=== PATIENT | female | born 1965 | race Caucasian/White ===

== ENCOUNTER 2016-07-25 15:35 | Observation (INO) ==
[2016-07-25] MEDS ORDERED: 0.9 % Sodium Chloride 1,000 ML IVC ONE (15:40)
[2016-07-25] MEDS ORDERED: *HR* Promethazine 25 MG/ML VIAL IVP ONE (15:40)
--- NOTE | 2016-07-25 15:42 | Emergency Department Note ---
Disposition Clinical Impression: Gastroenteritis, Influenza B, Mental status change resolved Disposition: Admitted As Inpatient Condition: Fair Referrals: NO,PCP [Primary Care Provider] - Forms: ED Satisfaction Letter Time of Disposition: 18:46 (christine rothman [facility]) Nausea/Vomiting/Diarrhea HPI - General Chief complaint: ED Nausea/Vomiting/Diarrhea Stated complaint: Cough, Dizzy, N/V Time Seen by Provider: 07/25/16 15:55 Source: patient, EMS Mode of arrival: EMS Limitations: no limitations Nursing Notes Reviewed: Yes Vital Signs Reviewed: Yes - History of Present Illness HPI Narrative: Patient presents to the emergency room family member has a confirmed flu B she has been having nausea vomiting fever chills aches all over denies diarrhea melena hematochezia or hematemesis denies any numbness or tingling family states that she is just weak all symptoms began this morning no headache no neck pain and except as noted joint aches no rashes or lesions all systems reviewed and otherwise negative Pt Subjective Complaint: nausea, vomiting, diarrhea Onset (ago): Just [employer] Description of emesis: food contents Description of Diarrhea: water Associated Abdominal Pain: Yes If pain, Location of pain: diffuse Severity: mild Severity scale (1-10): 2 Quality: cramping Consistency: constant Improves with: nothing Worsens with: nonthing Context: other (known sick eposure and influenza exposure) Associated symptoms: Reports: fever/chills, loss of appetite, malaise, nausea/ vomiting, weakness. Denies: myalgias, chest pain, cough, diaphoresis, headaches , dysuria, shortness of breath, syncope - Related Data Home Medications Medication Instructions Recorded Confirmed No Known Home Drugs 07/25/16 07/25/16 Allergies Allergy/AdvReac Type Severity Reaction Status Date / Time No Known Allergies Allergy Verified 07/25/16 15:40 All systems ED: reviewed and negative except as stated. Constitutional: Reports: fever. Denies: chills, weakness Eyes: Denies: eye pain, eye discharge ENT ED: Denies: ear pain Cardiovascular: Denies: chest pain Respiratory: Denies: cough, dyspnea Gastrointestinal: Reports: abdominal pain, nausea, vomiting, diarrhea Genitourinary: Denies: urgency, dysuria, frequency Musculoskeletal: Denies: back pain Integumentary: Denies: abrasion, lesions Neurological: Denies: headache, weakness Psychiatric: Denies: anxiety Endocrine: Denies: fatigue Hematological/Lymphatic: Denies: easy bleeding Allergic/Immunologic: Denies: facial swelling Past Medical History - Past Medical History Attestation: Yes The following information was validated with the patient. Source: patient, old records reviewed, nursing notes reviewed Medical history: Reports: no medical history Psychiatric history: Reports: no psych history - Social History Smoking Status: Current every day smoker Smokeless Tobacco Status: No Alcohol use: Reports: occasionally Drug use: Reports: none Physical Exam - General Limitations: no limitations General appearance: alert, in no apparent distress, anxious - Head Head exam: atraumatic, normocephalic, normal inspection - Eye Eye exam: Present: normal appearance, PERRL, EOMI - ENT ENT exam: normal exam, normal oropharynx, mucous membranes moist, normal external ear exam - Neck Neck exam: Present: normal inspection, full ROM, trachea midline - Chest Chest inspection: Present: normal inspection, symmetric chest wall rise - Respiratory Respiratory exam: Present: normal lung sounds bilaterally - Cardiovascular Cardiovascular exam: Present: regular rate, normal rhythm, normal heart sounds - Abdominal Exam Abdominal exam: Present: soft, Non-Tender, normal bowel sounds. Absent: mass, pulsatile mass - Extremities Exam Extremities exam: Present: normal inspection, full ROM, normal capillary refill. Absent: tenderness, joint swelling - Back Exam Back exam: Present: normal inspection, full ROM. Absent: muscle spasm - Neurological Exam Neurological exam: Present: alert, oriented X3, CN II-XII intact, normal gait - Psychiatric Psychiatric exam: Present: normal affect, normal mood - Skin Skin exam: Present: warm, dry, intact, normal color Course Course Narrative: Patient seen and examined IV fluids started awaiting results - Reevaluation(s) Reevaluation #1: Conclusion altered mental status when she had the fever. anticipate admission H &P proving post fluids is now alert answering question appropriately patient did have fever 101.9 given Tylenol resting admission to service Dr. Quintero Vital Signs Temperature 100.7 F H 07/25/16 15:41 Pulse Rate 107 07/25/16 15:41 Respiratory Rate 16 07/25/16 15:41 Blood Pressure 110/67 07/25/16 15:41 O2 Sat by Pulse Oximetry 97 07/25/16 15:41 Temperature 100.7 F H 07/25/16 15:43 Pulse Rate 60 07/25/16 17:45 Respiratory Rate 16 07/25/16 17:45 Blood Pressure 100/54 07/25/16 17:45 O2 Sat by Pulse Oximetry 98 07/25/16 17:45 Oxygen Delivery Oxygen Delivery Room Air Nausea/Vomiting/Diarrhea - [facility] Narrative Medical decision making narrative: Patient's family member tested positive for influenza B earlier this week most likely etiology for the - Differential Diagnosis Likely: gastroenteritis - Medical Records Medical records reviewed: Yes I reviewed the patient's medical records. - Lab Data Lab results reviewed: Yes I reviewed the patient's lab results. Result diagrams: 07/25/16 15:55 07/25/16 15:55 Lab Results 07/25/16 07/25/16 07/25/16 Range/Units 15:55 15:55 15:55 WBC 7.5 (4.3-11.1) K/mcL RBC 4.07 (3.82-4.97) M/mcL Hgb 13.4 (11.5-15.4) g/dL Hct 39.6 (35.3-44.9) % MCV 97.3 (83.0-100.0) fL MCH 32.9 (28.0-33.3) pg MCHC 33.8 (31.6-35.5) g/dL RDW 14.1 (11.5-14.5) % Plt Count 165 (140-400) K/mcL MPV 12.0 (9.4-12.4) fL Immature Gran % 0.4 (0-4) % Seg Neutrophils % 65.0 % Lymphocytes % 16.9 % Monocytes % 15.3 % Eosinophils % 1.5 % Basophils % 0.9 % Neutrophils # 4.9 (1.6-8.9) K/mcL Lymphocytes # 1.3 (0.6-4.6) K/mcL Monocytes # 1.2 (0.0-1.3) K/mcL Eosinophils # 0.1 (0.0-0.6) K/mcL Basophils # 0.1 (0.0-0.2) K/mcL APTT 34.0 (26.0-36.0) Seconds Sodium 141 (136-145) mEq/L Potassium 4.2 (3.5-4.5) mEq/L Chloride 108 (98-109) mEq/L Carbon Dioxide 22 (19-29) mEq/L BUN 10 (7-20) mg/dL Creatinine 0.87 (0.57-1.11) mg/dL Est GFR ( Amer) > 60 (> 60) Est GFR (Non-Af Amer) > 60 (> 60) BUN/Creatinine Ratio 11 (6-26) Glucose 87 (70-99) mg/dL Calculated Osmolality 290 (280-300) Calcium 9.1 (8.6-10.8) mg/dL Urine Color (Yellow) Urine Clarity (Clear) Urine pH (5.0-8.0) pH Units Ur Specific [place] (1.010-1.025) Urine Protein (Neg-Trace) mg/dL Urine Glucose (UA) (Normal) mg/dL Urine Ketones (Negative) mg/dL Urine Blood (Negative) Urine Nitrite (Negative) Urine Bilirubin (Negative) Urine Urobilinogen (Normal) mg/dL Ur Leukocyte Esterase (Negative) Urine Microscopic RBC (0-3) per hpf Urine Microscopic WBC (0-3) per hpf Ur Squamous Epith Cells (None-Few) per lpf Urine Bacteria (None-Few) per hpf Urine Mucus (Few) Ur Culture Indicated? (NO) Urine Opiates Screen (Mkuhjk=762) ng/mL Ur Oxycodone Screen (Cutoff= 100) ng/mL Ur Barbiturates Screen (Xquzpw=382) ng/mL Ur Phencyclidine Scrn (Cutoff=25) ng/mL Ur Amphetamines Screen (Kxnyah=9727) ng/mL U Benzodiazepines Scrn (Nolcbq=669) ng/mL Urine Cocaine Screen (Cutoff= 300) ng/mL U Marijuana (THC) Screen (Cutoff = 50) ng/mL 07/25/16 07/25/16 Range/Units 16:45 16:45 WBC (4.3-11.1) K/mcL RBC (3.82-4.97) M/mcL Hgb (11.5-15.4) g/dL Hct (35.3-44.9) % MCV (83.0-100.0) fL MCH (28.0-33.3) pg MCHC (31.6-35.5) g/dL RDW (11.5-14.5) % Plt Count (140-400) K/mcL MPV (9.4-12.4) fL Immature Gran % (0-4) % Seg Neutrophils % % Lymphocytes % % Monocytes % % Eosinophils % % Basophils % % Neutrophils # (1.6-8.9) K/mcL Lymphocytes # (0.6-4.6) K/mcL Monocytes # (0.0-1.3) K/mcL Eosinophils # (0.0-0.6) K/mcL Basophils # (0.0-0.2) K/mcL APTT (26.0-36.0) Seconds Sodium (136-145) mEq/L Potassium (3.5-4.5) mEq/L Chloride (98-109) mEq/L Carbon Dioxide (19-29) mEq/L BUN (7-20) mg/dL Creatinine (0.57-1.11) mg/dL Est GFR ( Amer) (> 60) Est GFR (Non-Af Amer) (> 60) BUN/Creatinine Ratio (6-26) Glucose (70-99) mg/dL Calculated Osmolality (280-300) Calcium (8.6-10.8) mg/dL Urine Color Yellow (Yellow) Urine Clarity Cloudy A (Clear) Urine pH 6.0 (5.0-8.0) pH Units Ur Specific [place] 1.020 (1.010-1.025) Urine Protein Trace (Neg-Trace) mg/dL Urine Glucose (UA) Normal (Normal) mg/dL Urine Ketones Negative (Negative) mg/dL Urine Blood Large H (Negative) Urine Nitrite Positive A (Negative) Urine Bilirubin Negative (Negative) Urine Urobilinogen Normal (Normal) mg/dL Ur Leukocyte Esterase Negative (Negative) Urine Microscopic RBC 15-30 H (0-3) per hpf Urine Microscopic WBC 0-3 (0-3) per hpf Ur Squamous Epith Cells Few (None-Few) per lpf Urine Bacteria Many H (None-Few) per hpf Urine Mucus Few (Few) Ur Culture Indicated? YES A (NO) Urine Opiates Screen Negative (Teihqj=570) ng/mL Ur Oxycodone Screen Negative (Cutoff= 100) ng/mL Ur Barbiturates Screen Negative (Igdzbd=101) ng/mL Ur Phencyclidine Scrn Negative (Cutoff=25) ng/mL Ur Amphetamines Screen Negative (Rkvquj=0690) ng/mL U Benzodiazepines Scrn Negative (Hdfyox=895) ng/mL Urine Cocaine Screen Negative (Cutoff= 300) ng/mL U Marijuana (THC) Screen Negative (Cutoff = 50) ng/mL Critical Care Time Critical Care Time: No
[2016-07-25 16:16] LABS: Basophils # 0.1 K/mcL (0.0-0.2); Basophils % 0.9 %; Eosinophils # 0.1 K/mcL (0.0-0.6); Eosinophils % 1.5 %; Hematocrit 39.6 % (35.3-44.9); Hemoglobin 13.4 g/dL (11.5-15.4); Immature Granulocytes % 0.4 % (0-4); Lymphocytes # 1.3 K/mcL (0.6-4.6); Lymphocytes % 16.9 %; Mean Corpuscular HGB Conc 33.8 g/dL (31.6-35.5); Mean Corpuscular Hemoglobin 32.9 pg (28.0-33.3); Mean Corpuscular Volume 97.3 fL (83.0-100.0); Monocytes # 1.2 K/mcL (0.0-1.3); Monocytes % 15.3 %; Neutrophils # 4.9 K/mcL (1.6-8.9); Platelet Count 165 K/mcL (140-400); Red Blood Count 4.07 M/mcL (3.82-4.97); Red Cell Distribution Width 14.1 % (11.5-14.5)
[2016-07-25 16:29] LABS: BUN/Creatinine Ratio 11 (6-26); Blood Urea Nitrogen 10 mg/dL (7-20); Calcium 9.1 mg/dL (8.6-10.8); Carbon Dioxide 22 mEq/L (19-29); Chloride 108 mEq/L (98-109); Glucose 87 mg/dL (70-99); Osmolality,Calculated 290 (280-300); Potassium 4.2 mEq/L (3.5-4.5); Sodium 141 mEq/L (136-145); eGFR For African Americans > 60 (> 60); eGFR For Non-African Americans > 60 (> 60)
[2016-07-25 16:50] LABS: Bilirubin,Urine Negative (Negative); Blood,Urine Large (Negative); Clarity,Urine Cloudy (Clear); Color,Urine Yellow (Yellow); Glucose,Urine (UA) Normal (Normal); Ketones,Urine Negative (Negative); Leukocyte Esterase,Urine Negative (Negative); Nitrite,Urine Positive (Negative); Protein,Urine Trace mg/dL (Neg-Trace); Urobilinogen,Urine Normal (Normal)
[2016-07-25 16:56] LABS: Bacteria,Urine Many per hpf (None-Few); Mucus,Urine Few (Few); RBC,Urine 15-30 per hpf (0-3); Squamous Epithelial Cell,Urine Few per lpf (None-Few); WBC,Urine 0-3 per hpf (0-3)
[2016-07-25 17:11] LABS: Amphetamine Screen,Urine Negative ng/mL (Cutoff=1000); Barbiturate Screen,Urine Negative ng/mL (Cutoff=200); Benzodiazepines Screen,Urine Negative ng/mL (Cutoff=200); Cannabinoid Screen,Urine Negative ng/mL (Cutoff = 50); Cocaine Screen,Urine Negative ng/mL (Cutoff= 300); Opiate Screen,Urine Negative ng/mL (Cutoff=300); Phencyclidine Screen,Urine Negative ng/mL (Cutoff=25)
[2016-07-25] MEDS ORDERED: CefTRIAXone 1,000 MG in D5% in Water (Mini-Bag+) 100 ML IVPB STA (17:38)
[2016-07-25] MEDS ORDERED: Ondansetron 4 MG/2 ML VIAL IVP PRN (19:36)
[2016-07-25] MEDS ORDERED: Ibuprofen 400 MG TABLET PO PRN (19:36)
[2016-07-25] MEDS ORDERED: Acetaminophen 325 MG TABLET PO PRN (19:36)
[2016-07-25] MEDS ORDERED: CefTRIAXone 1,000 MG in D5% in Water (Mini-Bag+) 100 ML IVPB ONE (19:36)
[2016-07-25] MEDS ORDERED: Naloxone 0.4 MG/ML INJ IVP PRN (19:36)
[2016-07-25] MEDS: 0.9 % Sodium Chloride 1,000 ML IVC SCH (23:47)
[2016-07-26 06:19] LABS: Basophils # 0.1 K/mcL (0.0-0.2); Hematocrit 35.8 % (35.3-44.9); Hemoglobin 12.1 g/dL (11.5-15.4); Mean Corpuscular HGB Conc 33.8 g/dL (31.6-35.5); Mean Corpuscular Hemoglobin 32.8 pg (28.0-33.3); Mean Platelet Volume 12.5 fL (9.4-12.4); Platelet Count 133 K/mcL (140-400); Red Blood Count 3.69 M/mcL (3.82-4.97); Red Cell Distribution Width 14.3 % (11.5-14.5)
[2016-07-26 06:20] LABS: INR 1.1; Prothrombin Time 11.9 Seconds (9.4-12.1)
[2016-07-26 06:23] LABS: Activated Partial Thrombo Time 31.7 Seconds (26.0-36.0)
[2016-07-26] MEDS: 0.9 % Sodium Chloride 1,000 ML IVC SCH (06:28)
[2016-07-26 06:31] LABS: BUN/Creatinine Ratio 11 (6-26); Blood Urea Nitrogen 8 mg/dL (7-20); Carbon Dioxide 19 mEq/L (19-29); Chloride 113 mEq/L (98-109); Glucose 83 mg/dL (70-99); Osmolality,Calculated 291 (280-300); Potassium 3.7 mEq/L (3.5-4.5); Sodium 142 mEq/L (136-145); eGFR For African Americans > 60 (> 60); eGFR For Non-African Americans > 60 (> 60)
[2016-07-26 07:39] LABS: Monocytes # 0.6 K/mcL (0.0-1.3); Neutrophils # 3.2 K/mcL (1.6-8.9)
[2016-07-26] MEDS ORDERED: CefTRIAXone 1,000 MG in D5% in Water (Mini-Bag+) 100 ML IVPB ONE (09:00)
[2016-07-26 10:28] VITALS: BP 108/62
--- NOTE | 2016-07-26 11:57 | Internal Med History&Physical ---
Date of Encounter: 07/26/16 Time of Encounter: 11:30 Assessment and Plan (1) Viral infection Current visit: Yes Status: Acute Presumed. No influenza testing was done. (2) Bacteria in urine Current visit: Yes Status: Acute Leukocyte esterase was negative but urine nitrite was positive and there was hematuria. We will treat empirically for UTI. (3) Mental status change resolved Current visit: Yes Status: Acute Etiology uncertain. Urine tox screen was negative. Internal Medicine - H&P: HPI Chief complaint: Vomiting and fever Admitted From: Home Plans for Post Hospital Care: Home History of present illness: Ms. Moran is a 50 year old female who came to the hospital complaining of vomiting and fever onset earlier in the day. She denied abdominal pain. She states she had a cough but no productivity from it. Her family reports she was lethargic. She was evaluated in emergency room and felt to have possible gastroenteritis and admitted to [facility] floor for ongoing care needs. Emergency room note reports she had a family member diagnosed with influenza B recently. Her respiratory history is significant for having smoked since age 9 up to 1 pack per day. She has not had PFTs and does not wear home oxygen. She states she feels improved at the present time and wishes to be discharged home. Past Med Surg Social Fam HX - Past Medical History Medical history: no medical history Psychiatric history: no psych history - Social History Smoking Status: Current every day smoker Packs per day: 1 Smokeless Tobacco Status: No Alcohol use: occasionally Drug use: none Internal Medicine - H&P: Meds No Known Home Drugs 07/25/16 [History] Allergies No Known Allergies Allergy (Verified 07/25/16 15:40) All Systems PM: A 10-system review of systems was performed and is negative for pertinent findings except as documented above in the HPI. Review of systems: Gen.: She states her weight has been stable the past few months Cardiovascular: She denies VT hypertension heart failure angina DVT or pulmonary embolus Respiratory: As per history of present illness GI: She denies disorders of her liver gallbladder or exocrine pancreas : She denies hematuria dysuria or kidney stones Neurologic: She denies large distribution strokes or seizures Endocrine: She denies diabetes thyroid disease or hyperlipidemia Hematology/oncology: She denies blood disorders cancers or anemia Psychiatric: She denies anxiety depression or other mental health issues Musk skeletal: She denies arthritis gout or other bone joint or muscle disorders. - Constitutional Vitals: Temp Pulse Resp BP Pulse Ox 98.4 F 86 18 108/62 98 07/26/16 10:15 07/26/16 10:15 07/26/16 10:15 07/26/16 10:15 07/26/16 10:15 Exam: Gen.: She is a well-developed lean female who appears in no acute distress at present time HEENT: Head is atraumatic and normocephalic. Eyes: EOMI. There is no scleral icterus. Mouth: Mucosa is moist. Neck: Supple and nontender. There is no thyromegaly or adenopathy noted. Heart: Regular without murmurs gallops or ectopics. Lungs: No wheezes or crackles are heard. She has diminished breath sounds diffusely Abdomen: Soft and nontender. No masses or guarding are noted. Extremities: There is no cyanosis edema or clubbing noted. Dorsalis pedis and posttibial pulses are 1-2 over 2 bilaterally. Neurologic: Mental status: She is talkative and a fair to good historian. She is slightly lethargic and seems to transiently fall asleep occasionally while answering questions. Cranial nerves: Smile is symmetric. Forehead wrinkles bilaterally. Tongue protrudes midline. EOMI. Motor: There is no pronator drift. Cerebellar: Finger to nose is intact bilaterally. Skin: Warm and dry Internal Med - H&P Results - Labs CBC & Chem 7: 07/26/16 05:00 07/26/16 05:00 Labs: Short CBC 07/26/16 Range/Units 05:00 WBC 5.9 (4.3-11.1) K/mcL Hgb 12.1 (11.5-15.4) g/dL Hct 35.8 (35.3-44.9) % Plt Count 133 L (140-400) K/mcL Neutrophils # 3.2 (1.6-8.9) K/mcL BMP 07/26/16 05:00 Sodium 142 Potassium 3.7 Chloride 113 H Carbon Dioxide 19 BUN 8 Creatinine 0.73 Glucose 83 Calcium 8.0 L
--- NOTE | 2016-07-26 12:08 | Discharge Summary ---
Date of Encounter: 07/26/16 Time of Encounter: 11:30 - Discharge Diagnosis (1) Viral infection Priority: Primary Status: Acute (2) Bacteria in urine Priority: Secondary Status: Acute (3) Mental status change resolved Priority: Secondary Status: Acute - Discharge Medications Prescriptions: Levofloxacin [Levaquin] 500 mg PO DAILY #3 tablet Home Medications: Levofloxacin [Levaquin] 500 mg PO DAILY #3 tablet 07/26/16 [Rx] Allergies/Adverse Reactions: Allergies No Known Allergies Allergy (Verified 07/25/16 15:40) Date of admission: 07/25/16 19:09 Primary care physician: PCP NO - Patient Status Disposition: Home, Self-Care Condition: Fair Overall status at discharge: patient is progressing back to baseline - Discharge Instructions Follow Up With: NO,PCP [Primary Care Provider] - 1 week - Diet and Activity Activity: resume usual activities as tolerated Diet: advance to your usual diet Hospital course: Ms. Moran is a 50 year old female who came to the hospital complaining of vomiting and fever onset earlier in the day. She denied abdominal pain. She states she had a cough but no productivity from it. Her family reports she was lethargic. She was evaluated in emergency room and felt to have possible gastroenteritis and admitted to [facility] for ongoing care needs. Initial orders were written by the emergency room physician. I saw her the morning of July 26 and performed the history and physical and discharge. She was given IV fluids. No influenza testing was done. She spiked occasional fevers during her hospital stay. I felt she likely had a viral infection. She stated her vomiting resolved and she was able to tolerate adequate amount of food and fluid without difficulty. She denied abdominal pain or diarrhea when I saw her. She wished to be discharged home which I felt was reasonable. I encouraged her strongly to become a nonsmoker. I recommended she follow with a PCP at [facility] within one week. She states she had not seen a PCP within 2 years but had previously been seen at [place]. Room air oximetry will be checked prior to discharge on a 6 minute walk. She was given 3 day course of Levaquin empirically for bacturia. - Time Spent with Patient Total time spent providing and/or coordinating discharge services: - Constitutional Vitals: Temp Pulse Resp BP Pulse Ox 98.4 F 86 18 108/62 98 07/26/16 10:15 07/26/16 10:15 07/26/16 10:15 07/26/16 10:15 07/26/16 10:15
== END 2016-07-26 12:39 | disposition home or self-care (01) ==
LOC: EMEROOPIK 15:35 → INPPIK 15:35
PROVIDERS: ADMIT Internal Medicine; ATTEND Internal Medicine